=== PATIENT | female | born 1975 | race African-American/Black ===

== ENCOUNTER 2017-10-11 06:05 | Emergency (ER) | payer OTHER ==
[~2017-10-11] VITALS: Ht 167.6 cm; Wt 113.0 kg
[2017-10-11] MEDS ORDERED: ONDANSETRON HCL 4MG/2ML VIAL IV STA (08:09)
[2017-10-11] MEDS ORDERED: KETOROLAC 30MG/ML VIAL IV STA (08:09)
[2017-10-11 09:06] LABS: BASOPHILS % 0.4 % (0.0-2.0); EOSINOPHILS % 3.5 % (0.0-5.0); HEMATOCRIT. 34.2 % (36.0-48.0); HEMOGLOBIN. 10.7 g/dL (12.0-16.0); MEAN CORPUSCULAR HEMOGLOBIN 25.2 pg (28.0-32.0); MEAN PLATELET VOLUME 9.1 fl (7.4-10.4); MONOCYTES % 3.5 % (2.0-8.0); NEUTROPHILS % 67.6 % (40.0-76.0); PLATELET 389 x1000/uL (130-400); RED BLOOD CELL COUNT 4.27 mill/uL (4.2-5.4); RED CELL DISTRIBUTION WIDTH 15.2 % (11.6-14.6)
[2017-10-11 09:07] LABS: CHLORIDE 102 mEq/L (98-107)
[2017-10-11] MEDS ORDERED: ONDANSETRON 4MG ODT PO ONE (10:30)
[2017-10-11 12:00] VITALS: BP 130/76
[2017-10-11] MEDS ORDERED: ACETAMINOPHEN 325MG TABLET PO ONE (12:45)
== END 2017-10-11 13:11 | disposition home or self-care (01) ==
LOC: ER 06:23
DX: D50.9 Iron deficiency anemia, unspecified (principal); D25.2 Subserosal leiomyoma of uterus; R03.0 Elevated blood-pressure reading, without diagnosis of hypertension; D72.829 Elevated white blood cell count, unspecified; I50.9 Heart failure, unspecified
CPT/HCPCS: 36415; 76830; 76856; 80053; 85025; 86850; 86900; 86901; 96374; 99285; J1885; Q0162; J2405

== ENCOUNTER 2019-04-18 20:43 | Emergency (ER) | payer OTHER ==
[~2019-04-18] VITALS: Ht 170.2 cm; Wt 97.0 kg
[2019-04-18 21:54] LABS: BASOPHILS % 0.8 % (0.0-2.0); EOSINOPHILS % 3.1 % (0.0-5.0); HEMATOCRIT. 32.3 % (36.0-48.0); LYMPHOCYTES % 27.7 % (20.0-50.0); MEAN CORPUSCULAR HEMOGLOBIN 22.4 pg (28.0-32.0); MEAN CORPUSCULAR VOLUME 72.9 fL (81.0-99.0); MEAN PLATELET VOLUME 8.2 fl (7.4-10.4); MONOCYTES % 4.2 % (2.0-8.0); NEUTROPHILS % 64.2 % (40.0-76.0); PLATELET 368 x1000/uL (130-400); RED BLOOD CELL COUNT 4.44 mill/uL (4.2-5.4); RED CELL DISTRIBUTION WIDTH 17.5 % (11.6-14.6)
[2019-04-18 21:58] LABS: CHLORIDE 105 mEq/L (98-107)
[2019-04-19 00:09] VITALS: BP 132/68
== END 2019-04-19 00:11 | disposition home or self-care (01) ==
LOC: ER 20:43
DX: R06.00 Dyspnea, unspecified (principal); E66.01 Morbid (severe) obesity due to excess calories; Z68.33 Body mass index [BMI] 33.0-33.9, adult
CPT/HCPCS: 36415; 71045; 83880; 84484; 93005; 99284